=== PATIENT | female | born 1965 | race Caucasian/White ===

== ENCOUNTER 2022-04-26 10:45 | Outpatient (CLI) | payer BC, SELFPAY ==
--- NOTE | 2022-04-26 11:17 | XR_ITS ---
WS: [id number] XR cervical spine 4-5V [id number] REASON FOR EXAM: NEURALGIA NEURITIS FINDINGS: There is straightening of the normal lordosis of the cervical spine. Normal odontoid. No focal vertebral body abnormality. Moderate narrowing of the C4-C5 C5-C6 and C6-C7 disc spaces. Moderate anterior and posterior osteophy thomas at C4, C5, and C6. There is no significant spondylolisthesis in the neutral position or with flexion and extension. The facet joint alignment is normal. XR/XR cervical spine 4-5V [id number] IMPRESSION: Multilevel degenerative spondylosis as above.
== END 2022-04-26 10:46 | disposition home or self-care (01) ==
PROVIDERS: PCP Family Medicine; Visit Provider Nurse Practitioner Family
DX: M79.2 Neuralgia and neuritis, unspecified (principal); M47.819 Spondylosis without myelopathy or radiculopathy, site unspecified
CPT/HCPCS: 72050

== ENCOUNTER 2023-02-19 09:19 | Outpatient (CLI) | payer OTHER, SELFPAY ==
--- NOTE | 2023-02-19 09:46 | XR_ITS ---
WS: [id number] Exam: XR chest 2V* [id number] Date/Time of Exam: 02/19/2023 9:46 AM Reason For Exam: CHRONIC COUGH No priors. The lungs are fully inflated and clear. Eventration of the right diaphragm. Normal cardiomediastinal silhouette. No pleural effusions. Surgical clips along the right axilla. Bony structures are intact. Straightening and reversal of the thoracic kyphosis. Mild thoracolumbar scoliosis. XR/XR chest 2V* [id number] IMPRESSION: 1. No acute cardiopulmonary finding.
== END 2023-02-19 09:20 | disposition home or self-care (01) ==
LOC: RAD 09:20
PROVIDERS: PCP Family Medicine; Visit Provider Nurse Practitioner Family
DX: R05.3 Chronic cough (principal)
CPT/HCPCS: 71046

== ENCOUNTER 2023-08-14 10:05 | Outpatient (CLI) | payer OTHER, SELFPAY ==
--- NOTE | 2023-08-14 10:15 | XRR_ITS ---
PROCEDURE INFORMATION: Exam: XR Right Knee Exam date and time: 08/14/2023 10:25 AM Age: 57 years old Clinical indication: Knee; Right; Patient HX: Throbbing pain for about 2 months, HX of breast cancer; Additional info: Pain in R knee.No history of trauma or recent surgery is provided. TECHNIQUE: Imaging protocol: Radiologic exam of the right knee. 2image(s) are provided. Views: 1 or 2 views. COMPARISON: No relevant prior studies available. FINDINGS: Bones/joints: No significant joint effusion is currently appreciated. Osseous alignment is maintained.No displaced fracture or dislocation is appreciated. There is some cortical thickening suggestive of previous injury of the proximal fibula. There is some mild degeneration overall with some spurring and compartmental narrowing patellofemoral and medial predominant. Soft tissues: No radiopaque foreign body or subcutaneous emphysema is appreciated. There is some prominence of the soft tissues overall. There appears to be some incidental vessel varicosity present for example about the medial knee and leg soft tissues. There appears to be some soft tissue calcification medially. XR/XR knee RT 1-2V [id number] IMPRESSION: 1. There are some mild multi compartmental degenerative changes present with no fracture or dislocation appreciated. If there is limited range of motion or continued pain, consider MRI of the knee. 2. There appears to be some incidental vessel varicosity related changes of the medial soft tissues. Consider venous lower extremity ultrasound for further evaluation.
== END 2023-08-14 10:06 | disposition home or self-care (01) ==
PROVIDERS: PCP Nurse Practitioner Family; Visit Provider Nurse Practitioner Family
DX: M17.11 Unilateral primary osteoarthritis, right knee (principal); M25.561 Pain in right knee
CPT/HCPCS: 73560